=== PATIENT | female | born 1945 | race Caucasian/White ===

== ENCOUNTER 2025-08-07 08:56 | Outpatient (CLI) | payer MEDICARE, SELFPAY ==
[2025-08-07 09:11] LABS: Hematocrit 39.9 % (37.0-47.0); Hemoglobin 12.8 g/dL (12.2-16.2); Immature Granulocytes % 0.4 %; Mean Corpuscular HGB Conc 32.1 g/dL (31.8-35.4); Mean Corpuscular Hemoglobin 29.7 pg (27.0-31.2); Mean Corpuscular Volume 92.6 fl (81-99); Nucleated Red Blood Cells % 0 %; Platelet Count 346 K/mm3 (142-424); Red Blood Count 4.31 M/mm3 (4.20-5.40); Red Cell Distribution Width-SD 44.0 fL; White Blood Count 7.0 K/mm3 (4.8-10.8)
[2025-08-07 09:57] LABS: Albumin Level 5.0 g/dl (3.5-5.0); Chloride 102 mmol/L (98-107)
[2025-08-07 09:58] LABS: Potassium 4.5 mmoL/L (3.5-5.1); Sodium 137 mmol/L (136-145)
[2025-08-07 10:00] LABS: Alanine Aminotransferase 16 U/L (12-78); Anion Gap 11.5 mEq/L (5-15); Aspartate Amino Transferase 22 U/L (14-36); Carbon Dioxide 28 mmol/L (22.0-30.0)
[2025-08-07 10:01] LABS: Albumin/Globulin Ratio 2.3 (1.1-1.8); Alkaline Phosphatase 95 U/L (38-126); Bilirubin,Total 0.5 mg/dl (0.2-1.3); Calcium 9.4 mg/dl (8.4-10.2); Globulin 2.2 g/dL (1.3-3.2); Glucose 109 mg/dl (74-100); Total Protein,Serum 7.2 g/dl (6.3-8.2)
[2025-08-07 10:15] LABS: Free T4 (Free Thyroxine) 1.61 ng/dl (0.78-2.19)
[2025-08-07 10:27] LABS: Thyroid Stimulating Hormone 1.62 uIU/mL (0.465-4.68)
[2025-08-07 10:49] LABS: Blood Urea Nitrogen 20 mg/dl (7-17); Creatinine,Serum 0.80 mg/dl (0.52-1.04); Estimated Glomerular Filt Rate 69 ml/min (>60); GFR (African American) 83 ML/MIN (>60)
== END 2025-08-07 23:59 | disposition home or self-care (01) ==
PROVIDERS: PCP Family Medicine; Visit Provider Family Medicine
DX: I10 Essential (primary) hypertension (principal); F03.90 Unspecified dementia, unspecified severity, without behavioral disturbance, psychotic disturbance, mood disturbance, and anxiety
CPT/HCPCS: 36415; 80053; 84439; 84443; 85025

== ENCOUNTER 2025-10-03 22:15 | Emergency (ER) | payer MEDICARE, SELFPAY ==
[2025-10-03 22:19] VITALS: BP 128/86; PULSE 72; RESP 20; TEMP 36.7; O2SAT 94; BMI 23.0
--- NOTE | 2025-10-03 22:25 | XR_ITS ---
PROCEDURE INFORMATION: Exam: XR Left Wrist Exam date and time: 10/03/2025 10:44 PM Age: 80 years old Clinical indication: Pain; Wrist; Left; Additional info: Fall, left wrist pain TECHNIQUE: Imaging protocol: Radiologic exam of the left wrist. Views: 3 or more views. COMPARISON: No relevant prior studies available. FINDINGS: Bones/joints: There is a faint transverse lucency of the radial metaphysis with dorsal cortical irregularity present consistent with a nondisplaced fracture. There are mild degenerative changes involving the radial aspect of the wrist. There is subtle widening of the scapholunate interval which could be posttraumatic or degenerative in nature. Calcifications of the TFCC are noted. Soft tissues: There is diffuse soft tissue swelling most prominent ventrally. IMPRESSION: 1. Nondisplaced radial metaphyseal fracture with associated significant soft tissue swelling. 2. Subtle widening of the scapholunate interval which may be degenerative or posttraumatic in nature.
[2025-10-03 23:00] VITALS: BP 130/68; PULSE 82; O2SAT 97
--- NOTE | 2025-10-03 23:06 | CT_ITS ---
PROCEDURE INFORMATION: Exam: CT Head Without Contrast Exam date and time: 10/03/2025 11:21 PM Age: 80 years old Clinical indication: Injury or trauma; Fall; Additional info: [facility], unclear if hit head TECHNIQUE: Imaging protocol: Computed tomography of the head without contrast. Radiation optimization: All CT scans at this facility use at least one of these dose optimization techniques: automated exposure control; mA and/or kV adjustment per patient size (includes targeted exams where dose is matched to clinical indication); or iterative reconstruction. COMPARISON: No relevant prior studies available. FINDINGS: Brain: There is age related atrophy. No hemorrhage. There is moderate periventricular white matter hypodensity consistent with chronic small vessel disease. No mass effect. Cerebral ventricles: Ventricular enlargement secondary to parenchymal atrophy. Paranasal sinuses: Visualized sinuses are unremarkable. No fluid levels. Mastoid air cells: Visualized mastoid air cells are well aerated. Orbital cavities: The orbital contents are symmetric and normal. Bones: Unremarkable. No acute fracture. Soft tissues: Unremarkable. IMPRESSION: No acute intracranial abnormality.
--- NOTE | 2025-10-03 23:06 | CT_ITS ---
PROCEDURE INFORMATION: Exam: CT Cervical Spine Without Contrast Exam date and time: 10/03/2025 11:30 PM Age: 80 years old Clinical indication: Injury or trauma; Fall; Additional info: Fall at [facility], unclear if hit head TECHNIQUE: Imaging protocol: Computed tomography of the cervical spine without contrast. Radiation optimization: All CT scans at this facility use at least one of these dose optimization techniques: automated exposure control; mA and/or kV adjustment per patient size (includes targeted exams where dose is matched to clinical indication); or iterative reconstruction. COMPARISON: CT HEAD/BRAIN WO CON 10/03/2025 11:21 PM FINDINGS: Bones: No acute fracture. There is a scoliosis convex right which may be positional. There is severe degenerative disc disease from C5 through T1. There is diffuse significant facet arthropathy. No significant disc bulge or herniation. No severe spinal canal stenosis. No significant neural foraminal narrowing. Lungs: Lung apices are normal. Soft tissues: Unremarkable. IMPRESSION: No acute cervical spine fracture.
--- NOTE | 2025-10-03 23:13 | HMH.EDGENADL ---
Discharge Plan Disposition Patient Disposition: Xfer SNF Condition: Good Prescriptions Prescriptions: No Action multivitamin Tablet 1 tab PO DAILY trazodone 150 mg tablet 75 mg PO DAILY aspirin 81 mg tablet 81 mg PO DAILY lisinopril 5 mg tablet 5 mg PO DAILY lorazepam [Ativan] 0.5 mg tablet 0.5 mg PO Q8H PRN (Reason: anxiety) Qty: 90 0RF Referrals Follow up/Referrals: Robles Raymundo DO [Staff Physician, Orthopedics] - See instructions Referral Note: Nondisplaced L wrist fracture. Placed in volar short arm splint due to dementia, please see ER note for details. Armando Painter MD [Primary Care Provider, Family Practice] - See instructions Referral Note: follow up fracture L wrist, referral placed to ortho as well Activity Restrictions/Add. Instructions Additional Instructions/Restrictions: Jennifer was evaluated in the ER and is believed to be appropriate for discharge at this time. Keep the splint in place. It needs to remain clean and dry at all times. She should not apply pressure to the splint as this could cause damage. She can take Tylenol if needed for pain. She needs follow-up with Dr. Raymundo in 1 week for repeat x-rays and possible cast. She should also follow-up with primary care in a few days for reevaluation. Return to the ER with any new, worsening, or otherwise concerning symptoms including but not limited to discoloration of the fingers, numbness of the hand, damage to the splint, or severe pain. Clinical Impressions Clinical Impression: Fall, Distal radius fracture, left Print Language Print Language: Danish Discharge ED Provider: Dominick Rome General Adult HPI General Chief complaint: Fall Stated complaint: Fall Time Seen by Provider: 10/03/25 23:01 Mode of Arrival: EMS Source of Information: EMS Description of Symptoms (Recalled from ER Triage Doc. by RN): EMS and nursing facility reported that pt fell at 1546 and landed onto her left wrist, facilty reported no LOC and pt did not strike her head. pt has edema localized to the left wrist. History of Present Illness HPI narrative: 80-year-old female with a history of dementia, urinary incontinence, previous cerebral infarction with left-sided deficits presents to the ER with left wrist pain and swelling. EMS reports they received report from her nursing facility that she tripped and fell at 1546 landing on outstretched left hand. It was reported that she did not strike her head but it is not clear from the nursing facility whether or not this was actually witnessed fall. Patient states she did not strike her head but she is only oriented to self and otherwise disoriented. Poor historian. Her fall was early this afternoon and patient seemed well but her wrist continued to bother her and she was favoring it at the nursing facility so they sent her to the ER [facility] for evaluation of the left wrist. Swelling of the left wrist noted on arrival the patient is using the left hand and arm. She reports no pain elsewhere. She has no other complaints or concerns though her history and review of systems is limited due to dementia. Related Data Home Medications ?Medication ?Instructions ?Recorded ?Confirmed aspirin 81 mg tablet 81 mg PO DAILY 07/31/25 09/14/25 lisinopril 5 mg tablet 5 mg PO DAILY 07/31/25 09/14/25 multivitamin 1 tab PO DAILY 08/04/25 09/14/25 trazodone 150 mg tablet 75 mg PO DAILY 09/14/25 09/14/25 Previous Rx's ?Medication ?Instructions ?Recorded lorazepam 0.5 mg tablet (Ativan) 0.5 mg PO Q8H PRN anxiety #90 tabs 08/14/25 Allergies Allergy/AdvReac Type Severity Reaction Status Date / Time No Allergy Information Allergy Mild Unknown Verified 08/09/25 20:10 Available allergy reaction [facility] Disclaimer: The information contained in this section may have been updated after the patient was seen, as this information can be updated by other users. Medical History Hemiparesis affecting left side as late effect of cerebrovascular accident History of falling Unspecified urinary incontinence Unsteadiness on feet Difficulty in walking, not elsewhere classified Muscle weakness (generalized) Cerebral infarction, unspecified Essential (primary) hypertension Advancing dementia Social History Smoking Status: Unknown if ever smoked alcohol intake: never current occupational status: retired Travel in the last 8 weeks?: None marital status: number of children: 4 Have you lived/traveled outside [place] in past 30 days?: No Contact w/someone who lives/traveled outside US past 30 days?: No Exposure to someone with infectious disease in past 14 days?: No Do you have a fever (greater than 100.4 F or 38 C)?: No Have you tested positive for COVID-19?: No Exposed to someone with COVID-19 in past 14 days?: No Do you have a sore throat?: No Do you have a cough?: No Do you have any weakness?: No Do you have any diarrhea?: No Are you experiencing any unusual bleeding?: No Do you have any muscle aches/pain?: No Do you have any abdominal pain?: No Are you experiencing loss of taste or smell?: No Other Medical History Have you received the Pneumonia Vaccine: No ROS Obtained: Yes unobtainable due to mental condition Limited due to dementia, see HPI. Denies pain anywhere but left wrist. Physical Exam General General appearance: alert and in no apparent distress Head Head exam: atraumatic and normocephalic Eye Eye exam: Present PERRL and EOMI ENT ENT exam: Present mucous membranes moist Neck Neck exam: Present normal inspection and full ROM; Absent tenderness Chest Chest inspection: Present symmetric chest wall rise; Absent tenderness Respiratory Respiratory exam: Present normal lung sounds bilaterally; Absent respiratory distress, wheezes or stridor Cardiovascular Cardiovascular exam: Present regular rate and normal rhythm Abdominal Exam Abdominal exam: Present soft; Absent distention, tenderness, guarding or rebound Extremities Exam Extremities exam: Present tenderness (Diffusely through the left wrist), normal capillary refill, joint swelling (Left wrist) and other (There is diffuse swelling of the left wrist with diffuse tenderness, no deformity, neurovascularly intact distally); Absent full ROM (Limited range of motion left wrist) or edema Back Exam Back exam: Absent paraspinal tenderness or vertebral tenderness Neurological Exam Neurological exam: Present alert; Absent oriented X3 (Only oriented to self, disoriented to location and year. Stated she thought she was at [facility].) or motor sensory deficit (No new motor or sensory deficits appreciated. Using all extremities equally despite swelling and pain in the left wrist) Psychiatric Psychiatric exam: Present normal affect and normal mood Skin Skin exam: Present warm and dry Medical Decision Making Medical Records Medical records reviewed: Yes I reviewed the patient's medical records. Screening: Per USPSTF and CDC recommendations, given the prevalence of disease in our region, it is our hospital?s policy to screen for HIV and viral Hepatitis for all patients aged 18 and over and those with ongoing risk factors. Riky Inquiry Pt receiving controlled substance: No Vital Signs: 10/03/25 22:19 10/03/25 23:00 10/03/25 23:28 Temperature 98.1 F Temperature Source Oral Pulse Rate 82 Pulse Rate [Right] 72 Respiratory Rate 20 Blood Pressure 130/68 Blood Pressure [Right Arm] 128/86 Blood Pressure Mean 88 Blood Pressure Mean [Right Arm] 100 Blood Pressure Source Blood Pressure Position 02 Sat by Pulse Oximetry 94 L 97 98 Oxygen Delivery Method Room Air 10/03/25 23:50 Temperature 97.8 F Temperature Source Oral Pulse Rate 82 Pulse Rate [Right] Respiratory Rate 16 Blood Pressure 130/68 Blood Pressure [Right Arm] Blood Pressure Mean Blood Pressure Mean [Right Arm] Blood Pressure Source Automatic Cuff Blood Pressure Position Sitting 02 Sat by Pulse Oximetry Oxygen Delivery Method Room Air Orders (Tests/Meds): ORDERS Category Date Time Status CT cervical spine wo con Stat Cat Scan 10/03/25 23:[address] head/brain wo con Stat Cat Scan 10/03/25 23:06 Completed XR wrist LT min 3V Stat Exams 10/03/25 22:25 Completed Medical Decision Narrative: In summary, this 80-year-old female with comorbidities described in the HPI presents to the emergency department today with left wrist pain and swelling after a fall about 7 hours prior to arrival at nursing facility. On initial evaluation patient is hemodynamically stable, afebrile, GCS 14 secondary to baseline confusion due to dementia, patient has swelling and tenderness of the left wrist without deformity, neurovascularly intact, no other abnormalities appreciated on exam. Differential diagnosis includes but is not limited to fracture, dislocation, soft tissue injury of the left wrist. I did also consider the possibility of cranial or cervical spine injury because while it is reported patient did not strike her head, it is unclear whether or not this is actually witnessed fall and patient is only oriented to self and therefore an unreliable historian. Based on these concerns, I ordered CT head and C-spine, x-ray left wrist. X-ray left wrist personally interpreted demonstrates abnormality of the distal left radius, unclear if this is artifact/vascular channel versus nondisplaced fracture. See radiology read for final interpretation. Radiology read states there is a nondisplaced radial metaphyseal fracture with associated soft tissue swelling and subtle widening of the scapholunate interval possibly degenerative versus posttraumatic. I suspect based on patient's location of pain it is more likely to be degenerative. Splint applied, see procedure note for details. Short arm volar splint was selected for this patient because she has advanced dementia, I do not believe she will tolerate a sugar-tong splint and sling that would be required for support. I think a volar splint is the best option to keep her wrist immobilized without limiting the use of her upper extremity otherwise. I am afraid that if we further limit her use of the left upper extremity that she will damage the splint will also exacerbating her dementia symptoms. She tolerated the volar splint well. Neurovascularly intact after application. No reduction was performed so no post-splint radiographs were taken. CT head personally turbid demonstrates no acute granule abnormality, no skull fracture, bleed, midline shift, or other abnormality. See radiology read for final interpretation. CT C-spine without acute traumatic injury, there are degenerative changes. See radiology read for final interpretation. Patient continues to be at her neurologic baseline, vital stable. She is well-appearing. I believe she is appropriate for discharge at this time. Report was called back to the nursing facility. Nurse Fadumo took report. Discharge instructions including splint care, follow-up instructions for orthopedics, pain management, and return precautions were given during report. They indicated understanding. The same instructions were provided in written form. The patient was discharged in stable condition. Procedures Orthopedic Splinting/Casting Injury #1: Side: left Upper Extremity Injury Location: wrist Upper Extremity Immobilizer: volar splint (stockinette, soft roll, orthoglass, priya wrap used for splint application) Post Cast/Splinting Neuro Status: intact and no change Post Cast/Splinting Vasc Status: intact and no change Critical Care Critical Care Time Critical Care Time: No
[2025-10-03 23:28] VITALS: O2SAT 98
[2025-10-03 23:50] VITALS: BP 130/68; PULSE 82; RESP 16; TEMP 36.6; O2SAT 97
== END 2025-10-04 01:48 ==
PROVIDERS: Emergency Provider Emergency Medicine; PCP Family Medicine
DX: S52.502A Unspecified fracture of the lower end of left radius, initial encounter for closed fracture (principal); W19.XXXA Unspecified fall, initial encounter
CPT/HCPCS: 29125; 70450; 72125; 73110; 99284; 99285